=== PATIENT | male | born 1945 | race Two or more races ===

== ENCOUNTER 2018-02-09 15:21 | Emergency (ER) | payer MEDICAID ==
[~2018-02-09] VITALS: Ht 167.6 cm; Wt 61.7 kg
[2018-02-09] MEDS ORDERED: HYDROcodone-ACET 10/325MG TAB PO ONE (17:00)
[2018-02-09 18:00] VITALS: BP 92/50
== END 2018-02-09 18:37 | disposition home or self-care (01) ==
LOC: ER 15:24
DX: S16.1XXA Strain of muscle, fascia and tendon at neck level, initial encounter (principal); E11.9 Type 2 diabetes mellitus without complications; X58.XXXA Exposure to other specified factors, initial encounter; Y93.89 Activity, other specified; Y99.8 Other external cause status; Y92.89 Other specified places as the place of occurrence of the external cause
CPT/HCPCS: 72125; 93005

== ENCOUNTER 2018-09-26 12:34 | Emergency (ER) | payer MEDICAID ==
[~2018-09-26] VITALS: Ht 175.3 cm; Wt 59.0 kg
[2018-09-26 13:23] LABS: Albumin 3.9 g/dL (3.4-5.0); Potassium 5.5 mmol/L (3.5-5.1)
[2018-09-26 13:26] LABS: Bilirubin, Total 0.1 mg/dL (0.2-1.0); Total Protein 7.6 g/dL (6.4-8.2)
[2018-09-26 13:34] LABS: Hematocrit 33.3 % (41.0-53.0); Hemoglobin 9.9 g/dL (13.5-17.5); Mean Corpuscular Hemoglobin 19.2 pg (28.0-32.0); Mean Corpuscular Hgb Conc. 29.8 g/dL (32.0-36.0); Mean Corpuscular Volume 64.6 fL (80.0-100.0); Platelet Count (auto) 168 10^3/uL (140-450); Red Blood Cells 5.15 10^6/uL (4.5-5.90); White Blood Cell 6.4 10^3/uL (4.4-10.8)
[2018-09-26] MEDS ORDERED: SODIUM CHLORIDE 0.9% 500 ML IV ONE (13:34)
[2018-09-26 13:41] LABS: Red Cell Distribution Width 23.3 % (11.8-14.3)
[2018-09-26 13:42] LABS: Band Neutrophils % (manual) 0; Basophils % (manual) 0 (0.0-2.0); Blast Cells 0; Eosinophils % (manual) 0 (0-7); Metamyelocytes % 0; Myelocytes % 0; Promyelocytes % 0; Reactive Lymphocytes 0
[2018-09-26 14:07] LABS: BUN/Creatinine Ratio 37.8
[2018-09-26] MEDS ORDERED: CALCIUM GLUC 4.65meq/50ml D5AE 50 ML IV ONE (14:15)
[2018-09-26] MEDS ORDERED: SODIUM BICARBONATE 8.4 % INJ 50ML VIAL IV ONE (14:15)
[2018-09-26 14:40] LABS: Lymphocytes % (manual) 8 (10.0-50.0); Monocytes % (manual) 4 (0-12)
[2018-09-26] MEDS ORDERED: SODIUM BICARBONATE 8.4% INJ 50ML SYRINGE ONE (18:57)
[2018-09-26] MEDS ORDERED: PHENYTOIN IV DILANTIN 1,000 MG in SODIUM CHL 0.9% 250 ML IV ONE (22:00)
[2018-09-26] MEDS ORDERED: PHENYTOIN SODIUM 50 MG/ML 2ML VIAL IV ONE (22:16)
[2018-09-26] MEDS ORDERED: PHENYTOIN SODIUM 50 MG/ML 5ML INJ VIAL IV ONE ×2 (22:19)
[2018-09-27 01:07] LABS: Albumin 3.1 g/dL (3.4-5.0); Calcium 7.4 mg/dL (8.5-10.1); Potassium 5.1 mmol/L (3.5-5.1)
[2018-09-27 01:10] LABS: BUN/Creatinine Ratio 41.1; Bilirubin, Total 0.1 mg/dL (0.2-1.0); Total Protein 6.3 g/dL (6.4-8.2)
[2018-09-27] MEDS ORDERED: LORazepam 2MG/ML-1ML VIAL ONE (02:47)
[2018-09-27 03:30] VITALS: BP 89/53
[2018-09-27] MEDS ORDERED: MIDAZOLAM DRIP 50 mg/50mL 50 ML IV ONE (03:44)
== END 2018-09-27 04:47 | disposition short-term general hospital (02) ==
LOC: ER 12:39
DX: R53.1 Weakness (principal); N17.9 Acute kidney failure, unspecified; E23.2 Diabetes insipidus; F17.210 Nicotine dependence, cigarettes, uncomplicated
CPT/HCPCS: 36415; 51702; 70490; 71045; 80053; 80185; 85007; 85027; 93005; 94761; 96365; 96366; 96367; 96375; 99285; J0610; J1165; J2060; J2250; J7050